=== PATIENT | female | born 1945 | race Two or more races ===

== ENCOUNTER → 2016-10-06 | Outpatient (CLI) | payer MEDICARE ==
[~2016-10-06] VITALS: Ht 160 cm; Wt 83.9 kg
[~2016-10-06] MED LIST: NEXIUM20 MG ORAL; NEXIUM40 MG ORAL; PRAVACHOL20 MG ORAL
[2016-10-06 14:46] VITALS: BP 110/68
--- NOTE | 2016-10-07 23:45 | Consultation ---
DATE OF CONSULTATION: 10/06/2016 CHIEF COMPLAINT: History of colonic polyp. HISTORY OF PRESENT ILLNESS: This is a pleasant 71-year-old [place] female with past medical history of breast cancer and history of GERD. Apparently, she had colonoscopy over five years ago. She had multiple polyps. She was told that she needed another colonoscopy. Denies any nausea or vomiting. Denies any abdominal pain. The patient had some signs and symptoms of heartburn. Apparently, she had one endoscopy many years ago and she was not procedure for her. The patient has minimum constipation for which she takes fruits and vegetables and apparently it seems to be working. No melena. No hematochezia. No weight loss. PAST MEDICAL HISTORY: 1. Breast cancer x2. 2. GERD. 3. Hypercholesterolemia. 4. Cataracts. PAST SURGICAL HISTORY: Left lumpectomy and also bilateral cataract eye surgery. MEDICATIONS: Please see medication reconciliation list. ALLERGIES: No known drug allergies. FAMILY HISTORY: No family history of GI malignancies. SOCIAL HISTORY: The patient denies any recent tobacco, alcohol, or drug use. Apparently, she used to smoke, but quit many years ago. REVIEW OF SYSTEMS: A 10-point review of systems was performed. Pertinent positives in HPI. PHYSICAL EXAMINATION: VITAL SIGNS: Temperature 98 degrees, blood pressure 110/68, pulse 79, and respirations 20. HEENT: Normocephalic and atraumatic. Sclerae anicteric. NECK: Supple. No lymphadenopathy. CARDIOVASCULAR: Regular rate and rhythm. Plus S1 and S2. No obvious murmur. LUNGS: Clear to auscultation bilaterally. ABDOMEN: ___ soft, nontender. No rebound. No guarding. No peritoneal sign. EXTREMITIES: No cyanosis. No clubbing. No edema. LABORATORY DATA: Unavailable. ASSESSMENT AND PLAN: This is a 71-year-old female with history of multiple colonic polyps, needs colonoscopy. The patient at this time does not want endoscopy. I plan to do colonoscopy when the patient is ready. We will give the patient instructions and prep for the colonoscopy. She was informed of the risks and benefits of the procedure and she agreed to it and she is going to call and schedule. I want to thank, Dr. Alvarez, for this kind referral. Pedro Pablo Patricia Cabrales DR: DEBRA JOB#: [id number] CC: Kristian Alvarez M.D.; Fax#: [phone]
== END | disposition home or self-care (01) ==
LOC: PAN 14:26
DX: K21.9 Gastro-esophageal reflux disease without esophagitis (principal); Z85.3 Personal history of malignant neoplasm of breast; Z86.010 Personal history of colon polyps; Z87.891 Personal history of nicotine dependence
CPT/HCPCS: 99201

== ENCOUNTER 2016-10-20 09:12 | Day surgery (SDC) | payer MEDICARE ==
[~2016-10-20] VITALS: Ht 160 cm; Wt 81.6 kg
[2016-10-20] VITALS (7 sets, daily range): BP systolic 102–135; BP diastolic 54–85
--- NOTE | 2016-10-20 10:16 | Pre-Procedure Note/Attestation ---
Pre-Procedure Note/Attestation Complete Prior to Procedure Planned Procedure: not applicable Procedure Narrative: colonoscopy Indications for Procedure Pre-Operative Diagnosis: screening, colon polyps Attestation I attest that I discussed the nature of the procedure; its benefits; risks and complications; and alternatives (and the risks and benefits of such alternatives ), prior to the procedure, with the patient (or the patient's legal statement services representative). I attest that, if there was a reasonable possibility of needing a blood transfusion, the patient (or the patient's legal statement services representative) was given the [facility] standardized written summary, pursuant to the Deven [place]ner Blood Safety Act ([place] Health and Safety Code # 1645, as amended). I attest that I re-evaluated the patient just prior to the surgery and that there has been no change in the patient's H&P, except as documented below: ANASTACIA THOMAS Oct 20, 2016 10:16
--- NOTE | 2016-10-20 10:17 | Short Stay Surgery H&P ---
History of Present Illness History of Present Illness Chief Complaint see recent consult note HPI Hope Beverly is a 71 year old female who was admitted on for Hx Of Colon Polyps Patient History Allergies: Coded Allergies: No Known Allergies (Unverified , 09/24/13) PAST MEDICAL HISTORY: Past Surgeries: Social History: Medication History Scheduled Esomeprazole Magnesium (Nexium), 20 MG ORAL DAILY, (Reported) Pravastatin Sod* (Pravachol*), 40 MG ORAL DAILY, (Reported) Physical Exam Vital Signs Last Vital Signs Date Time Temp Pulse Resp B/P (MAP) Pulse Ox O2 Delivery O2 Flow Rate FiO2 10/20/16 09:54 97.6 69 19 102/54 94 Room Air Plan Attestation Are the patient's medical conditions optimized for surgery? ANASTACIA THOMAS Oct 20, 2016 10:16
[2016-10-20] MEDS ORDERED: Propofol 200mg/20ml IV ONE (10:30)
[2016-10-20] MEDS ORDERED: Lidocaine 1% MPF 10mg/ml 5ml ONE (10:30)
[2016-10-20] MEDS ORDERED: Midazolam 2mg/2ml Inj IVP PRN (11:00)
[2016-10-20] MEDS ORDERED: Hydromorphone 0.5mg/0.5ml inj IVP PRN (11:00)
[2016-10-20] MEDS ORDERED: DiphenhydrAMINE 50mg/ml Inj IVP PRN (11:00)
[2016-10-20] MEDS ORDERED: Atropine Inj 1mg/10ml Syr IV PRN (11:00)
--- NOTE | 2016-10-20 11:02 | Endoscopy Procedure Note ---
Endoscopy Procedure Note Indication for Procedure: screening Procedures Performed: colonoscopy Operative Findings/Diagnosis: 3 polyps Specimen: yes Pt Tolerated Procedure Well: Yes Estimated Blood Loss: none Anesthesiologist: cecy Anesthesia: MAC Implant(s) used?: No 50 yrs or older w/o bx or poly: No 10yrs. F/U not recommended: Yes If not recommended, why?: Above average risk 10 yrs. F/U needed: Yes 18 years or older w/prev. colo: Yes <3yrs. since last colonoscopy: No ANASTACIA THOMAS Oct 20, 2016 11:01
--- NOTE | 2016-10-20 11:05 | Anethesia Preoperative Eval ---
Anesthesia Pre-op PMH/ROS General Date of Evaluation: Oct 20, 2016 Time of Evaluation: 10:32 Anesthesiologist: cecy ASA Score: ASA 3 Mallampati Score Class I : Soft palate, uvula, fauces, pillars visible Class II: Soft palate, uvula, fauces visible Class III: Soft palate, base of uvula visible Class IV: Only hard plate visible Mallampati Classification: Class II Surgeon: heidi Diagnosis: gerd, colon polyps Surgical Procedure: colonoscopy Anesthesia History: none Social History: smoking Family History: no anesthesia problems Allergies: Coded Allergies: No Known Allergies (Unverified , 09/24/13) Medications: see eMAR Past Medical History Gastrointestinal/Genitourinary: Reports: GERD Hematology/Immune: Reports: other - cancer Anesthesia Pre-op Phys. Exam Physician Exam Last Vital Signs Date Time Temp Pulse Resp B/P (MAP) Pulse Ox O2 Delivery O2 Flow Rate FiO2 10/20/16 09:54 97.6 69 19 102/54 94 Room Air Constitutional: NAD Neurologic: CN 2-12 intact Cardiovascular: RRR Respiratory: CTA Gastrointestinal: S/NT/ND Airway Exam Mallampati Score: Class II MO: full Neck: supple TMD: 2fb ROM: full Teeth: intact Anesthesia Pre-op A/P Risk Assessment & Plan Assessment: asa3 Plan: mac Status Change Before Surgery: No Pre-Antibiotics Drug: ROSA ELENA Hawthorne Oct 20, 2016 11:05
--- NOTE | 2016-10-20 11:44 | Immediate Post-Op Evaluation ---
Immediate Post-Op Evalulation Immediate Post-Op Evalulation Procedure: colonoscopy Date of Evaluation: Oct 20, 2016 Time of Evaluation: 11:22 IV Fluids: 0.9ns 250ml Blood Products: none Estimated Blood Loss: negligible Blood Pressure Systolic: 121 Blood Pressure Diastolic: 85 Pulse Rate: 82 Respiratory Rate: 18 O2 Sat by Pulse Oximetry: 100 Temperature (Fahrenheit): 97.1 Pain Score (1-10): 0 Nausea: No Vomiting: No Complications none Patient Status: awake, reacts, patent Hydration Status: adequate Drug: ROSA ELENA Hawthorne Oct 20, 2016 11:44
--- NOTE | 2016-10-20 11:46 | 48 Hour Post Anesthesia Eval ---
Post Anesthesia Evaluation Procedure: colonoscopy Date of Evaluation: Oct 20, 2016 Time of Evaluation: 11:44 Blood Pressure Systolic: 121 0: 85 Pulse Rate: 87 Respiratory Rate: 18 Temperature (Fahrenheit): 97.1 O2 Sat by Pulse Oximetry: 100 Airway: patent Nausea: No Vomiting: No Pain Intensity: 0 Hydration Status: adequate Cardiopulmonary Status: stable Mental Status/LOC: patient returned to baseline Post-Anesthesia Complications: none Follow-up care needed: N/A ROSA ELENA VILCHIS Oct 20, 2016 11:45
--- NOTE | 2016-10-20 23:15 | Procedure Note ---
DATE OF PROCEDURE: 10/20/2016 SURGEON: Pedro Pablo Cabrales M.D. PROCEDURE: Colonoscopy with biopsy. ANESTHESIOLOGIST: Patricia Guy M.D. INSTRUMENT: Olympus adult flexible colonoscope. INDICATION: History of colonic polyps, screening colonoscopy. Reason for Procedure: The procedure, risks, benefits, and possible consequences, including hemorrhage, aspiration, perforation and infection, and alternative treatments, were explained to the patient/legal guardian by Dr. Pedro Pablo Cabrales and the patient/legal guardian understood and accepted these risks. Procedure: After informed consent, the patient was adequately sedated, first rectal exam was performed, which was normal. Then, the scope was advanced from the rectum into the cecum, documented by appendiceal orifice, ileocecal valve, and right upper quadrant palpation. Quality of prep was very good. The patient had evidence of scattered sigmoid diverticulosis. The patient had three polyps, two in the transverse and one in the rectum, all small, diminutive, removed with cold biopsy forceps technique. The rest of the exam was grossly within normal limit. Retroflexion of rectum showed evidence of internal hemorrhoids. FINDINGS: 1. Three colonic polyps removed, see above for details. 2. Diverticulosis. 3. Internal hemorrhoids. RECOMMENDATIONS: 1. Followup biopsy results and treat accordingly. 2. Recommend repeat colonoscopy in five years. I want to thank, Dr. Alvarez, for this kind referral. Pedro Pablo Cabrales M.D. DR: Nikki JOB#: [id number] CC: Kristian Alvarez M.D.; Fax#: [phone]
--- NOTE | 2016-10-25 19:11 | Cardiology Report ---
APPROVED REPORT EKG Measurement Heart [id number] Normal sinus rhythm Normal ECG
== END 2016-10-20 12:20 | disposition home or self-care (01) ==
LOC: GAS 09:12
DX: Z12.11 Encounter for screening for malignant neoplasm of colon (principal); K57.90 Diverticulosis of intestine, part unspecified, without perforation or abscess without bleeding; K64.8 Other hemorrhoids; K21.9 Gastro-esophageal reflux disease without esophagitis; Z85.9 Personal history of malignant neoplasm, unspecified; Z87.891 Personal history of nicotine dependence; D12.3 Benign neoplasm of transverse colon; K62.1 Rectal polyp; Z87.19 Personal history of other diseases of the digestive system
CPT/HCPCS: 45380; 93005; J2704; 94003; 94150